=== PATIENT | male | born 1965 | race Caucasian/White ===

== ENCOUNTER 2018-03-22 10:48 | Observation (INO) ==
--- NOTE | 2018-03-22 11:58 | ED ---
HPI General Chief Complaint: Chest Pain Stated Complaint: Chest Pressure/Arm Complaint Time Seen by Provider: 03/22/18 11:39 History of Present Illness HPI narrative: This patient complains of chest pain. He has had spells of sternal heaviness and pressure on and off for the last 2-3 weeks. He reports having a negative stress test a year ago. He is an obese hypertensive diabetic male who used to smoke. Symptom severity is moderate. No alleviating factors. No exacerbating factors. Discomfort is not exertional. He is currently chest pain-free. Related Data Home Medications Medication Instructions Recorded Confirmed glipizide 10 mg PO BID 03/22/18 03/22/18 hydrochlorothiazide 25 mg PO DAILY 03/22/18 03/22/18 insulin glargine-lixisenatide 03/22/18 03/22/18 [Soliqua 100/33] telmisartan 80 mg PO DAILY 03/22/18 03/22/18 Allergies Allergy/AdvReac Type Severity Reaction Status Date / Time No Known Allergies Allergy Verified 03/22/18 10:55 Review of Systems ROS: all other systems reviewed are negative [facility] Medical History Medical History Diabetes (Acute) Hypertension (Acute) TIA (transient ischemic attack) (Acute) Surgical History Surgical History H/O knee surgery (Acute) Social History Social History Substance History: No History of Abuse Smoking Status: Former smoker How Often Do You Have a Drink Containing Alcohol: Monthly or less Recent Travel in [facility] within the Last 8 Weeks: No Recent Out of Country Travel within the Last 8 Weeks: No Immunization History Tetanus Immunization: >5 Years Exam Narrative Exam Narrative: GENERAL: Well-nourished, well-developed patient in no apparent distress. SKIN: Focused skin assessment reveals no rash and nodules. Skin is Warm and dry. HEAD: Atraumatic. Normocephalic. EYES: Pupils equal and round. No scleral icterus. No injection or drainage. ENT: No nasal bleeding or discharge. Mucous membranes pink and moist. NECK: Trachea midline. No JVD. CARDIOVASCULAR: Regular rate and rhythm. No murmur appreciated. RESPIRATORY: No accessory muscle use. Clear to auscultation. Breath sounds equal bilaterally. GASTROINTESTINAL: Abdomen soft, non-tender, nondistended. Hepatic and splenic margins not palpable. MUSCULOSKELETAL: No obvious deformities. No clubbing. No cyanosis. No edema. NEUROLOGICAL: Awake and alert. No obvious cranial nerve deficits. Motor grossly within normal limits. Normal speech. PSYCHIATRIC: Appropriate mood and affect; insight and judgment normal. Course Initial Documented Vital Signs Temperature 98.5 F 03/22/18 10:52 Pulse Rate 92 H 03/22/18 10:52 Respiratory Rate 24 03/22/18 10:52 Blood Pressure 170/77 H 03/22/18 10:52 Pulse Oximetry 95 03/22/18 10:52 Last Documented Vital Signs Temperature 98.5 F 03/22/18 10:52 Pulse Rate 94 H 03/22/18 11:05 Respiratory Rate 14 03/22/18 11:05 Blood Pressure 186/101 H 03/22/18 11:05 Pulse Oximetry 97 03/22/18 11:56 Medical Decision Making MDM Narrative Medical decision making narrative: This is a 52-year-old male who has numerous risk factors for CAD complaining of sternal pressure and heaviness. I have ordered a cardiac workup. I gave him aspirin. EKG shows a left bundle branch block. He is never been here before so there is no EKG to compare. He does see a financial sales assistant periodically but does not know the name. On recheck patient is pain-free. His work appears negative including cardiac enzymes CHEST X-RAY: No infiltrate, pneumothorax or mediastinal widening. And general lab studies. He will be a 23-hour observation in the chest pain center in order to rule out cardiac cause of his symptoms. Medical Screen Exam Complete: Yes Emergency Medical Condition: Yes Differential Diagnosis Differential Diagnosis: Differential diagnosis includes WI, angina, pericarditis , pleurisy, GERD, anxiety. Medical Records Medical records reviewed: Yes I reviewed the patient's medical records. Lab Data Lab results reviewed: Yes I reviewed the patient's lab results. Lab results narrative: Labs are normal Result diagrams: 03/22/18 11:40 03/22/18 11:40 Lab Results 03/22/18 03/22/18 03/22/18 Range/Units 11:40 11:40 11:40 WBC 7.8 (4.0-11.0) th/mm3 RBC 4.60 (4.50-5.90) mil/mm3 Hgb 15.2 (13.0-17.0) gm/dL Hct 44.8 (39.0-51.0) % MCV 97.4 (80.0-100.0) fL MCH 33.1 (27.0-34.0) pg MCHC 33.9 (32.0-36.0) % RDW 12.7 (11.6-17.2) % Plt Count 265 (150-450) th/mm3 MPV 8.0 (7.0-11.0) fL Neut % (Auto) 50.9 (16.0-70.0) % Lymph % (Auto) 35.3 (9.0-44.0) % Daggett % (Auto) 11.4 H (0.0-8.0) % Eos % (Auto) 1.6 (0.0-4.0) % Baso % (Auto) 0.8 (0.0-2.0) % Neut # (Auto) 4.0 (1.8-7.7) th/mm3 Lymph # (Auto) 2.7 (1.0-4.8) th/mm3 Daggett # (Auto) 0.9 (0.0-0.9) th/mm3 Eos # (Auto) 0.1 (0.0-0.4) th/mm3 Baso # (Auto) 0.1 (0.0-0.2) th/mm3 WBC Differential . Differential Comment Auto diff final PT 10.4 (9.8-11.6) sec INR 1.0 Ratio APTT 25.1 (23.4-31.7) sec Sodium 138 (136-145) meq/L Potassium 3.9 (3.5-5.1) meq/L Chloride 101 (98-107) meq/L Carbon Dioxide 27.8 (21.0-32.0) meq/L Anion Gap 9 (5-15) meq/L BUN 14 (7-18) mg/dL Creatinine 0.93 (0.60-1.30) mg/dL Estimated GFR 85 L (>89) mL/min Random Glucose 127 H (74-106) mg/dL Calcium 9.1 (8.5-10.1) mg/dL Total Bilirubin 0.6 (0.2-1.0) mg/dL AST 39 H (15-37) U/L ALT 67 (12-78) U/L Alkaline Phosphatase 63 (45-117) U/L Total Creatine Kinase 139 (39-308) U/L CK-MB (CK-2) 1.5 (0.5-3.6) ng/mL Troponin I Less than 0.02 L (0.02-0.05) ng/mL Total Protein 8.4 H (6.4-8.2) g/dL Albumin 4.1 (3.4-5.0) g/dL Imaging Data Attestation: I personally reviewed and interpreted this imaging study as follows : My impression: Chest x-ray is normal Radiologist's impression: Chest X-Ray 03/22/18 11:51 CONCLUSION: Negative examination. ECG Data EKG Prior to Arrival: No Attestation: I personally reviewed and interpreted this ECG as follows: Prior ECG tracings: not available for review Interpretation: EKG shows a sinus rhythm at 87. He has a left bundle branch block. LA interval is 180 ms. Calvin is normal. Discharge Plan Discharge Disposition Patient Disposition: 30 Still Patient Discharge Details Diagnosis: Chest pain in adult Physicians Team ED Provider: Gage Blancas Primary Care Provider: Joana Amador Rxs /Orders / Referrals /Forms Prescriptions: No Action glipizide 10 mg Tablet 10 mg PO BID RF: 0 telmisartan 80 mg Tablet 80 mg PO DAILY RF: 0 hydrochlorothiazide 25 mg Tablet 25 mg PO DAILY RF: 0 insulin glargine-lixisenatide [Soliqua 100/33] 100 unit-33 mcg/mL Insulin Pen RF: 0 Discharge Instructions Patient Printed Instructions: Chest Pain (ED) Discharge Interventions Interventions: Vital Signs Last Done: 03/22/18 11:05 Status ED Status: Admitted Observation Patient
[2018-03-22 12:15] LABS: Baso # (Auto) 0.1 th/mm3 (0.0-0.2); Baso % (Auto) 0.8 % (0.0-2.0); Eos # (Auto) 0.1 th/mm3 (0.0-0.4); Eos % (Auto) 1.6 % (0.0-4.0); Hematocrit 44.8 % (39.0-51.0); Hemoglobin 15.2 gm/dL (13.0-17.0); Lymph # (Auto) 2.7 th/mm3 (1.0-4.8); Lymph % (Auto) 35.3 % (9.0-44.0); Mean Corpuscular HGB Conc 33.9 % (32.0-36.0); Mean Corpuscular Hemoglobin 33.1 pg (27.0-34.0); Mean Corpuscular Volume 97.4 fL (80.0-100.0); Mono # (Auto) 0.9 th/mm3 (0.0-0.9); Mono % (Auto) 11.4 % (0.0-8.0); Neut % (Auto) 50.9 % (16.0-70.0); Platelet Count 265 th/mm3 (150-450); Red Cell Distribution Width 12.7 % (11.6-17.2); White Blood Count 7.8 th/mm3 (4.0-11.0)
[2018-03-22 12:23] LABS: Activated Partial Thrombo Time 25.1 sec (23.4-31.7); Prothrombin Time 10.4 sec (9.8-11.6)
[2018-03-22 12:29] LABS: Alanine Aminotransferase 67 U/L (12-78); Albumin 4.1 g/dL (3.4-5.0); Anion Gap 9 meq/L (5-15); Aspartate Aminotransferase 39 U/L (15-37); Blood Urea Nitrogen 14 mg/dL (7-18); Calcium 9.1 mg/dL (8.5-10.1); Carbon Dioxide 27.8 meq/L (21.0-32.0); Chloride 101 meq/L (98-107); Glomerular Filtration Rate 85 mL/min (>89); Glucose,Random 127 mg/dL (74-106); Potassium 3.9 meq/L (3.5-5.1); Sodium 138 meq/L (136-145)
[2018-03-22 12:33] LABS: Alkaline Phosphatase 63 U/L (45-117); Creatine Kinase 139 U/L (39-308); Total Protein 8.4 g/dL (6.4-8.2)
--- NOTE | 2018-03-22 12:41 | XR ---
EXAM DATE: 03/22/2018 12:32 PM EST AGE/SEX: 52 years / Male INDICATIONS: Chest pain and right side rib pain. CLINICAL DATA: This is the patient's initial encounter. Patient reports that signs and symptoms have been present for 1 month and indicates a pain score of 9/10. MEDICAL/SURGICAL HISTORY: None. None. COMPARISON: No prior exams available for comparison. FINDINGS: A single AP view of the chest demonstrates the lungs to be symmetrically aerated without evidence of mass, infiltrate or effusion. The cardiomediastinal contours are unremarkable. Osseous structures a re intact. CONCLUSION: Negative examination. Electronically signed by: Bandar Vincent MD 03/22/2018 12:40 PM EST
[2018-03-22 12:45] LABS: Creatine Kinase MB 1.5 ng/mL (0.5-3.6)
[2018-03-22] MEDS ORDERED: Acetaminophen 500 MG Tablet PO PRN (14:48)
--- NOTE | 2018-03-22 14:51 | P.HPCA ---
History of Present Illness Primary Care Physician: Joana Amador MD Chief Complaint: Chest pain History of Present Illness: This is a 52-year-old male with history of hypertension, hyperlipidemia, diabetes, past tobacco abuse that presents to ED with complaint of 3-4 episodes of central chest tightness that has been intermittent for the last week. - Diagnosis (1) Chest pain (2) Hypertension (3) Hyperlipidemia (4) Diabetes Review of Systems General: Patient denies fevers, chills, and recent travel. HEENT: Patient denies headache, sore throat, difficulty swallowing. Cardiovascular: Has the chest discomfort as mentioned above. Denies sensation of heart beating rapidly or irregularly. No syncope. Denies diaphoresis. Respiratory: At times he is short of breath. Denies inspirational chest discomfort. Denies coughing wheezing or hemoptysis. GI: Patient denies nausea, vomiting, diarrhea, abdominal pain, bloody stools. Musculoskeletal: Patient denies joint pain or edema. Denies calf pain or edema. Neurovascular: Patient denies numbness, tingling, weakness in extremities. Denies headache. Endocrine: Denies polyuria and polydipsia. Hematologic: Denies easy bruising. Skin: Denies rash or itching. PMFSH - History History Provided By: Patient, Family Member - Medical History Medical History: Medical History (Last Updated 03/22/18 @ 11:08 by Shyann Kennedy) Diabetes Hypertension TIA (transient ischemic attack) - Surgical History Surgical History: Surgical History (Last Reviewed 03/22/18 @ 11:01 by Shyann Kennedy) H/O knee surgery - Tobacco History Smoking Status: Former smoker - Alcohol History How Often Do You Have a Drink Containing Alcohol: Monthly or less - Substance Use History Substance History: No History of Abuse - Travel History Recent Travel in the [place] Within the Last 8 Weeks: No Recent Travel Out of the Country Within the Last 8 Weeks: No - Immunization History Tetanus Immunization: >5 Years Medications and Allergies Active Medications: Active Medications Sodium Chloride (Ns Flush) 2 ml IV.FLUSH UNSCH PRN PRN Reason: FLUSH AFTER USING IV ACCESS Allergies Allergy/AdvReac Type Severity Reaction Status Date / Time No Known Allergies Allergy Verified 03/22/18 10:55 Home Medications Medication Instructions Recorded Confirmed Type glipizide 10 mg PO BID 03/22/18 03/22/18 History hydrochlorothiazide 25 mg PO DAILY 03/22/18 03/22/18 History insulin glargine-lixisenatide 03/22/18 03/22/18 History [Soliqua 100/33] telmisartan 80 mg PO DAILY 03/22/18 03/22/18 History Exam Vital signs: Vital Signs 03/22/18 10:52 03/22/18 11:05 03/22/18 11:56 Temperature 98.5 F Pulse Rate 92 H 94 H Respiratory Rate 24 14 Blood Pressure 170/77 H 186/101 H Pulse Oximetry 95 97 97 Intake & Output 03/21/18 03/22/18 03/22/18 18:59 06:59 18:59 Weight 141.067 kg Narrative: GENERAL: This is a well-nourished, well-developed patient, in no apparent distress. Patient speaks in clear complete sentences. Patient is pleasant. HEENT: Head is atraumatic and normocephalic. Neck is supple without lymphadenopathy and trachea is midline. No JVD or carotid bruits. CARDIOVASCULAR: Regular rate and rhythm without murmurs, gallops, or rubs. RESPIRATORY: Clear to auscultation. Breath sounds equal bilaterally. No wheezes , rales, or rhonchi. Chest wall is nontender. No use of accessory muscles. GASTROINTESTINAL: Abdomen is nontender, nondistended. Abdomen soft. No obvious pulsatile mass or bruit. No CVA tenderness. Strong femoral pulses bilaterally. Normal bowel sounds in all quadrants. MUSCULOSKELETAL: Patient is moving upper and lower extremities freely. No calf tenderness or edema, no Homans sign. Strong pulses in upper and lower extremities. NEUROLOGICAL: Patient is alert and oriented. Cranial nerves 2-12 are grossly intact. No focal deficits and speech is clear. SKIN: No rash and turgor is normal. Results 03/22/18 11:40 03/22/18 11:40 Cardiac Enzymes 03/22/18 Range/Units 11:40 AST 39 H (15-37) U/L CK-MB (CK-2) 1.5 (0.5-3.6) ng/mL Troponin I Less than 0.02 L (0.02-0.05) ng/mL Coagulation 03/22/18 Range/Units 11:40 PT 10.4 (9.8-11.6) sec APTT 25.1 (23.4-31.7) sec CBC 03/22/18 Range/Units 11:40 WBC 7.8 (4.0-11.0) th/mm3 RBC 4.60 (4.50-5.90) mil/mm3 Hgb 15.2 (13.0-17.0) gm/dL Hct 44.8 (39.0-51.0) % Plt Count 265 (150-450) th/mm3 Neut # (Auto) 4.0 (1.8-7.7) th/mm3 Lymph # (Auto) 2.7 (1.0-4.8) th/mm3 [place]ord # (Auto) 0.9 (0.0-0.9) th/mm3 Eos # (Auto) 0.1 (0.0-0.4) th/mm3 Baso # (Auto) 0.1 (0.0-0.2) th/mm3 Comprehensive Metabolic Panel 03/22/18 Range/Units 11:40 Sodium 138 (136-145) meq/L Potassium 3.9 (3.5-5.1) meq/L Chloride 101 (98-107) meq/L Carbon Dioxide 27.8 (21.0-32.0) meq/L BUN 14 (7-18) mg/dL Creatinine 0.93 (0.60-1.30) mg/dL Calcium 9.1 (8.5-10.1) mg/dL AST 39 H (15-37) U/L ALT 67 (12-78) U/L Alkaline Phosphatase 63 (45-117) U/L Total Protein 8.4 H (6.4-8.2) g/dL Albumin 4.1 (3.4-5.0) g/dL Intake and Output 03/21/18 03/22/18 03/22/18 22:59 06:59 14:59 Other: Weight 141.067 kg Patient Weight 03/23/18 06:59 Weight 141.067 kg - Imaging and Cardiology Imaging: Impressions Chest X-Ray 03/22/18 11:51 CONCLUSION: Negative examination. EKG interpretations - EKG EKG shows: sinus rhythm (Left bundle branch block) Caprini VTE Risk Assessment Caprini VTE Risk Assessment: No/Low Risk (score <= 1) Caprini Risk Assessment Model: Point Value = 1 Point Value = 2 Point Value = 3 Point Value = 5 Age 41-60 Minor surgery BMI > 25 kg/m2 Swollen legs Varicose veins or History of unexplained or recurrent spontaneous Oral contraceptives or hormone replacement Sepsis (< 1 month) Serious lung disease, including pneumonia (< 1 month) Abnormal pulmonary function Acute myocardial infarction Congestive heart failure (< 1 month) History of inflammatory bowel disease Medical patient at bed rest Age 61-74 Arthroscopic surgery Major open surgery (> 45 min) Laparoscopic surgery (> 45 min) Malignancy Confined to bed (> 72 hours) Immobilizing plaster cast Central venous access Age >= 75 History of VTE Family history of VTE Factor V Leiden Prothrombin [id number] Lupus anticoagulant Anticardiolipin antibodies Elevated serum homocysteine Heparin-induced thrombocytopenia Other congenital or acquired thrombophilia Stroke (< 1 month) Elective arthroplasty Hip, pelvis, or leg fracture Acute spinal cord injury (< 1 month) Prophylaxis Regimen: Total Risk Factor Score Risk Level Prophylaxis Regimen 0-1 Low Early ambulation 2 Moderate Order ONE of the following: *Sequential Compression Device (SCD) *Heparin 5000 units SQ BID 3-4 Higher Order ONE of the following medications: *Heparin 5000 units SQ TID *Enoxaparin/Lovenox 40 mg SQ daily (WT < 150 kg, CrCl > 30 mL/min) *Enoxaparin/Lovenox 30 mg SQ daily (WT < 150 kg, CrCl > 10-29 mL/min) *Enoxaparin/Lovenox 30 mg SQ BID (WT < 150 kg, CrCl > 30 mL/min) AND/OR *Sequential Compression Device (SCD) 5 or more Highest Order ONE of the following medications: *Heparin 5000 units SQ TID (Preferred with Epidurals) *Enoxaparin/Lovenox 40 mg SQ daily (WT < 150 kg, CrCl > 30 mL/min) *Enoxaparin/Lovenox 30 mg SQ daily (WT < 150 kg, CrCl > 10-29 mL/min) *Enoxaparin/Lovenox 30 mg SQ BID (WT < 150 kg, CrCl > 30 mL/min) AND *Sequential Compression Device (SCD) Assessment and Plan - Assessment (1) Chest pain Code(s): R07.9 - Chest pain, unspecified Status: Acute (2) Hypertension Code(s): I10 - Essential (primary) hypertension Status: Acute (3) Hyperlipidemia Code(s): E78.5 - Hyperlipidemia, unspecified Status: Acute (4) Diabetes Code(s): E11.9 - Type 2 diabetes mellitus without complications Status: Acute
[2018-03-22] MEDS ORDERED: Dextrose 50% in Water 50 ML Vial IV.PUSH PRN (14:53)
[2018-03-22 17:08] LABS: Creatine Kinase 108 U/L (39-308)
[2018-03-22 17:20] LABS: Creatine Kinase MB 1.2 ng/mL (0.5-3.6)
[2018-03-22] MEDS: Insulin NovoLIN Regular Correctional Sugar Inj SQ SCH ×2 (18:18→20:45)
[2018-03-22 21:12] LABS: Creatine Kinase 105 U/L (39-308)
[2018-03-22 21:32] LABS: Creatine Kinase MB 1.1 ng/mL (0.5-3.6)
[2018-03-23 01:01] VITALS: RESP 14
[2018-03-23 07:27] VITALS: BP 166/86; PULSE 88; TEMP 98.3
[2018-03-23] MEDS: Insulin NovoLIN Regular Correctional Sugar Inj SQ SCH (08:24)
[2018-03-23 08:25] VITALS: O2SAT 97
[2018-03-23] MEDS ORDERED: hydroCHLOROthiazide 25 MG Tablet PO SCH (09:00)
[2018-03-23] MEDS ORDERED: Regadenoson Inj 0.4 MG/5 ML Syringe IV.PUSH ONE (09:23)
--- NOTE | 2018-03-23 10:46 | NM ---
EXAM DATE: 03/23/2018 10:42 AM EST AGE/SEX: 52 years / Male INDICATIONS:Angina. . Intermittent chest tightness for 1 week. CLINICAL DATA: This is the patient's initial encounter. Patient reports that signs and symptoms have been present for 1 week and indicates a pain score of 3/10. MEDICAL/SURGICAL HISTORY: Diabetes. Hypertension. Transient ischemic attack. . Knee surgery. COMPARISON: [facility], CHEST 1V SINGLE AP, 03/22/2018. . No external comparison. DOSE: 11.5 mCi Tc 99m Myoview at rest 35.1 mCi [id number] at stress 0.4 mg Lexiscan STRESS SYMPTOMS: Dyspnea and chest tightness. EJECTION FRACTION: 42 % TECHNIQUE: The patient underwent pharmacologic stress with infusion of prescribed dose. Continuous ECG tracing was monitored during stress. Gated SPECT imaging was performed after stress and conventi onal SPECT imaging was performed at rest. The examination was performed on a SPECT/CT scanner, both attenuation and non-corrected datasets were reviewed. FINDINGS: Distribution: The maximum perfused segment at stress is in the inferior wall. Perfusion Study: There are mild fixed perfusion defects involving the anterior wall and septal wall . No definite reversible perfusion defects are identified. Gated Study: There is hypokinesis seen particularly of the septal wall. The ejection fraction is ca lculated at 42%. RISK CATEGORY: Intermediate (1-3 % Annual Mortality Rate) CONCLUSION: 1. No definite reversible perfusion defects are identified to suggest stress-induced myocardial isch emia. Electronically signed by: Prabhakar Maurer MD 03/23/2018 10:44 AM EST
--- NOTE | 2018-03-23 12:15 | TR ---
Date Performed: 03/23/2018 Time Performed: 09:32:25 DOCTOR: Jimmy Haynes DRUG LIST: CLINICAL HISTORY: REASON FOR TEST: Angina REASON FOR ENDING: OBSERVATION: CONCLUSION: COMMENTS: Lexiscan stress test was performed under standard four minute protocol. Radionuclide was injected one minute prior to ending the test. No electrocardiographic abormalities were present t o suggest ischemia. Nuclear imaging and interpretation are pending.
--- NOTE | 2018-03-23 14:38 | ECG ---
Date Performed: 03/22/2018 Time Performed: 20:04:01 PTAGE: 52 years EKG: Sinus rhythm LEFT BUNDLE BRANCH BLOCK ABNORMAL ECG PREVIOUS TRACING : 03/22/2018 16.33 DOCTOR: Jimmy Haynes Interpretating Date/Time 03/23/2018 14:36:41
--- NOTE | 2018-03-23 14:39 | ECG ---
Date Performed: 03/22/2018 Time Performed: 16:33:56 PTAGE: 52 years EKG: Sinus rhythm LEFT BUNDLE BRANCH BLOCK ABNORMAL ECG Since PREVIOUS TRACING , no significant change noted DOCTOR: Jimmy Haynes Interpretating Date/Time 03/23/2018 14:37:19
--- NOTE | 2018-03-23 14:39 | ECG ---
Date Performed: 03/22/2018 Time Performed: 11:08:23 PTAGE: 52 years EKG: Sinus rhythm LEFT BUNDLE BRANCH BLOCK ABNORMAL ECG NO PREVIOUS TRACING DOCTOR: Jimmy Haynes Interpretating Date/Time 03/23/2018 14:37:55
== END 2018-03-23 12:26 | disposition home or self-care (01) ==
LOC: NEPE 10:48 → NEDA 10:48 → NEPFCDU 15:52
PROVIDERS: ADMIT Internal Medicine Interventional Cardiology; ATTEND Internal Medicine Interventional Cardiology